=== PATIENT | female | born 1945 | race Caucasian/White ===

== ENCOUNTER → 2017-04-07 | Outpatient (CLI) | payer MEDICARE, BC ==
[~2017-04-07] MED LIST: AMITRYPTYLINE PO; B COMPLEX1 TAB PO; CALCIUM + D 6001 TA1 PO; COZAAR100 MG PO; FISH OIL 1,2001 EAC2 PO; TRIAMTERENE-HC1 EAC1 PO; [UNRECOGNIZED DRUG - OTHER] PO; [UNRECOGNIZED DRUG - OTHER] PO; [UNRECOGNIZED DRUG - OTHER] PO
--- NOTE | ~2017-04-07 | MY29 ---
[facility] A Service of [facility] RADIOLOGY TEXT RESULTS PATIENT: MARGARITO MICHELE LOCATION: [facility] : 45 UNIT #: [id number] AGE: [address]: REX MYERS MD (INT MED) SEX: F ORDER DR: [id number] [facility] [address] [place], [place] [address] [id number] O MR#: [id number] Acc #: [id number] NAME: MARGARITO MICHELE. : 1945 SEX: F STUDY DATE/TIME: 04/07/2017 9:57 UNIT: [facility] ROOM: STUDY DESCRIPTION: MY VIDA SCREENING W/ CAD BILAT Attending Physician: Rex Myers M.D. Referring Physician: Rex Myers M.D. Ordering Physician: Rex Myers M.D. Primary Care Physician: Rex Myers M.D. MEDICAL IMAGING REPORT This report is preliminary unless electronic signature is present EXAM Digital screening mammogram, 04/07/2017, [facility]. HISTORY 71-year-old woman no risk elevation. Annual screen. COMPARISON Mammograms date to 05/03/2006 with most recent 07/06/2015. TECHNIQUE Digital imaging of each breast was completed utilizing screening protocol. Review includes FDA-approved CAD device. FINDINGS Breast parenchyma is partially fatty replaced in each breast. Approximate 1 cm nodule present mid outer posterior third right breast is unchanged from our initial film screen mammogram 05/03/2006. I see no interval occurring mass. There are no suspicious microcalcifications. There is no architectural distortion. IMPRESSION Stable negative mammogram. Stable 1 cm nodule benign characteristics right breast. Annual screening recommended. Patients over the age of 40 are entered into a reminder system with target due date for the next mammogram. A result letter will also be sent to the patient. BIRADS: 1 Negative Dictated by... [facility] A Service [facility] RADIOLOGY TEXT RESULTS PATIENT: MARGARITO MICHELE LOCATION: [facility] : 45 UNIT #: [id number] AGE: [address]: REX MYERS MD (INT MED) SEX: F ORDER DR: Layo Fowler M.D. THIS IS AN ELECTRONICALLY VERIFIED REPORT Layo Fowler M.D. at 04/07/2017 2:52 PM MARIAELENA/yudy TD: 04/07/2017 13:59 JOB #: [id number] MEDICAL IMAGING REPORT Page 1 of 1 COPY
== END | disposition home or self-care (01) ==
LOC: CWCC 09:32
DX: Z12.31 Encounter for screening mammogram for malignant neoplasm of breast (principal); N63 Unspecified lump in breast
CPT/HCPCS: G0202